=== PATIENT | female | born 1960 | race Caucasian/White ===

== ENCOUNTER 2020-12-12 09:19 | Outpatient (CLI) | payer BC | END 2020-12-12 09:20 | disposition home or self-care (01) | LOC: BICULT 09:19 | PROVIDERS: ATTEND Physician Assistant Medical | DX: R10.13 Epigastric pain (principal); R19.7 Diarrhea, unspecified; K21.9 Gastro-esophageal reflux disease without esophagitis; R13.10 Dysphagia, unspecified | CPT/HCPCS: 76705 ==

== ENCOUNTER 2021-09-09 08:00 | Outpatient (CLI) | payer OTHER | END 2021-09-09 08:01 | disposition home or self-care (01) | LOC: BICRAD 08:00 | PROVIDERS: ATTEND Nurse Practitioner Family | DX: M47.812 Spondylosis without myelopathy or radiculopathy, cervical region (principal) | CPT/HCPCS: 72050 ==

== ENCOUNTER 2024-02-28 18:51 | Inpatient (IN) | payer MEDICARE, OTHER ==
[2024-02-28] MEDS ORDERED: Aspirin 325 MG TAB ONE (20:11)
[2024-02-28] MEDS ORDERED: Aspirin Chewable 81 MG TAB ONE (20:14)
[2024-02-28 21:05] LABS: #Basophils 0.05 10x3/uL (0.0-0.2); %Basophils 0.7 % (0.0-1.0); %Eosinophils 1.2 % (0.0-10.0); %Lymphocytes 22.8 % (21.0-51.0); %Monocytes 7.9 % (0.0-10.0); %Neutrophils 67.1 % (42.0-75.0); Hematocrit 36.6 % (36.0-47.0); Hemoglobin 11.9 g/dL (12.0-16.0); Mean Corpuscular HGB CONC 32.5 g/dL (32.0-36.0); Mean Corpuscular Volume 89.3 fL (78.0-98.0); Mean Platelet Volume 10.1 fL (7.4-10.4); Platelet Count 182 10x3/uL (130-400); RBC Distribution Width 13.5 % (11.5-14.5)
[2024-02-28 21:19] LABS: ALT (SGPT) 15 U/L (8-55); AST (SGOT) 22 U/L (5-34); Alkaline Phosphatase 45 U/L (40-110); Anion Gap 13 mmol/L (10-20); BUN (Urea Nitrogen) 21 mg/dL (9.8-20.1); Bilirubin, Total 0.4 mg/dL (0.2-1.2); Calc. Creatinine Clearance 0 mL/min (70-130); Calcium 9.4 mg/dL (7.8-10.44); Carbon Dioxide 24 mmol/L (23-31); Chloride 109 mmol/L (98-107); Estimated GFR 53; Globulin 2.9 g/dL (2.4-3.5); Glucose 88 mg/dL (80-115); Potassium 3.9 mmol/L (3.5-5.1); Protein, Total 6.9 g/dL (5.8-8.1); Sodium 142 mmol/L (136-145)
[2024-02-28 21:23] LABS: Troponin I 0.014 ng/mL (< 0.028)
[2024-02-28] MEDS ORDERED: Ondansetron ODT 4 MG TAB PO PRN (21:35)
[2024-02-28] MEDS ORDERED: Ondansetron PF 4 MG/2 ML Vial IVP PRN (21:35)
[2024-02-28] MEDS ORDERED: Acetaminophen 500 MG TAB ONE (22:08)
[2024-02-29 00:10] VITALS: BMI 27.9
[2024-02-29] MEDS: Rosuvastatin 5 MG TAB PO SCH ×2 (00:33→21:10)
[2024-02-29] MEDS: Sertraline 25 MG TAB PO SCH ×2 (00:34→21:10)
[2024-02-29] MEDS: ALPRAZolam 1 MG TAB PO SCH (00:34)
[2024-02-29] MEDS: Nitroglycerin 2% Ointment 1 INCH/1 GM Packet TOP SCH (00:34)
[2024-02-29] MEDS: Calcium Carbonate 500 MG ChewTAB PO SCH (01:01)
[2024-02-29] MEDS: Zolpidem Tartrate 5 MG TAB PO PRN (01:01)
[2024-02-29 02:03] LABS: Troponin I Less than 0.010 ng/mL (< 0.028)
[2024-02-29 03:48] LABS: Troponin I Less than 0.010 ng/mL (< 0.028)
[2024-02-29 03:56] LABS: #Basophils 0.06 10x3/uL (0.0-0.2); %Basophils 1.1 % (0.0-1.0); %Eosinophils 2.6 % (0.0-10.0); %Lymphocytes 43.2 % (21.0-51.0); %Monocytes 11.1 % (0.0-10.0); %Neutrophils 41.8 % (42.0-75.0); Hematocrit 33.5 % (36.0-47.0); Hemoglobin 11.2 g/dL (12.0-16.0); Mean Corpuscular HGB CONC 33.4 g/dL (32.0-36.0); Mean Corpuscular Hemoglobin 29.3 pg (27.0-31.0); Mean Corpuscular Volume 87.7 fL (78.0-98.0); Mean Platelet Volume 9.8 fL (7.4-10.4); Platelet Count 151 10x3/uL (130-400); RBC Distribution Width 13.5 % (11.5-14.5); Red Blood Cell (RBC) Count 3.82 mill/uL (4.20-5.40)
[2024-02-29 04:13] LABS: Hemoglobin A1c 5.3 % (4.0-6.0)
[2024-02-29 04:46] LABS: Anion Gap 12 mmol/L (10-20); BUN (Urea Nitrogen) 20 mg/dL (9.8-20.1); Calc. Creatinine Clearance 70 mL/min (70-130); Calcium 9.6 mg/dL (7.8-10.44); Carbon Dioxide 24 mmol/L (23-31); Cardiac Risk 2.7 (Less than 4.5); Chloride 109 mmol/L (98-107); Cholesterol 174 mg/dl (< 200 Desired); Estimated GFR 71; Glucose 75 mg/dL (80-115); HDL Cholesterol 64 mg/dL (>60 Neg Risk); LDL Cholesterol, Calculated 94 mg/dL; Potassium 3.6 mmol/L (3.5-5.1); Sodium 141 mmol/L (136-145); Triglycerides 78 mg/dL (Less than 150)
[2024-02-29] MEDS: Aspirin 325 mg Enteric Coated Tablet PO SCH (08:23)
[2024-02-29] MEDS: Pantoprazole DR 40 MG TAB PO SCH (08:23)
[2024-02-29] MEDS: Enoxaparin 40 MG (0.4 mL) SYRINGE SC SCH (08:24)
[2024-02-29] MEDS ORDERED: Regadenoson 0.4 MG/5 ML SYRINGE ONE (14:41)
[2024-02-29] MEDS: ALPRAZolam 0.5 MG TAB PO SCH (21:10)
[2024-02-29] MEDS ORDERED: Calcium Carbonate 500 MG ChewTAB PO PRN (22:37)
[2024-03-01 04:24] LABS: #Basophils 0.08 10x3/uL (0.0-0.2); %Basophils 1.4 % (0.0-1.0); %Eosinophils 2.6 % (0.0-10.0); %Lymphocytes 35.5 % (21.0-51.0); %Monocytes 10.4 % (0.0-10.0); %Neutrophils 49.9 % (42.0-75.0); Mean Corpuscular HGB CONC 33.3 g/dL (32.0-36.0); Mean Corpuscular Hemoglobin 28.8 pg (27.0-31.0); Mean Corpuscular Volume 86.3 fL (78.0-98.0); Mean Platelet Volume 10.2 fL (7.4-10.4); Platelet Count 190 10x3/uL (130-400); RBC Distribution Width 13.3 % (11.5-14.5); Red Blood Cell (RBC) Count 4.52 mill/uL (4.20-5.40)
[2024-03-01 05:11] LABS: Anion Gap 14 mmol/L (10-20); BUN (Urea Nitrogen) 18 mg/dL (9.8-20.1); Calc. Creatinine Clearance 59 mL/min (70-130); Calcium 9.6 mg/dL (7.8-10.44); Carbon Dioxide 26 mmol/L (23-31); Chloride 105 mmol/L (98-107); Estimated GFR 58; Glucose 92 mg/dL (80-115); Potassium 4.2 mmol/L (3.5-5.1); Sodium 141 mmol/L (136-145)
[2024-03-01] MEDS: Acetaminophen 325 MG TAB PO PRN (06:22)
[2024-03-01 11:39] VITALS: BP 98/65; TEMP 97.3
== END 2024-03-01 16:38 | disposition home or self-care (01) | DRG 313 ==
LOC: ERS 18:51 → 2SW 21:34 → OBSVTOIN 03-01 09:03
PROVIDERS: ADMIT Internal Medicine; ATTEND Internal Medicine
DX: R07.89 Other chest pain (principal); F41.9 Anxiety disorder, unspecified; F32.A Depression, unspecified; F39 Unspecified mood [affective] disorder; E78.00 Pure hypercholesterolemia, unspecified; Z88.1 Allergy status to other antibiotic agents; Z90.710 Acquired absence of both cervix and uterus; Z98.890 Other specified postprocedural states; Z83.3 Family history of diabetes mellitus; Z79.82 Long term (current) use of aspirin; Z79.899 Other long term (current) drug therapy
CPT/HCPCS: 36415; 71046; 78452; 80048; 80053; 80061; 83036; 84443; 84484; 85025; 93005; 93017; 94760; A9502; J1650; J2785